=== PATIENT | female | born 1950 | race Caucasian/White ===

== ENCOUNTER 2021-02-27 19:58 | Inpatient (IN) ==
[2021-02-27] MEDS ORDERED: 0.9 % Sodium Chloride 500 ML IVC ONE (22:12)
[2021-02-27] MEDS ORDERED: Ondansetron 4 MG/2 ML VIAL IVP ONE (22:13)
[2021-02-27 22:20] LABS: Bacteria,Urine Few per hpf (None-Few); Bilirubin,Urine Negative (Negative); Blood,Urine Negative (Negative); Budding Yeast,Urine Many per hpf (None Seen); Clarity,Urine Turbid (Clear); Color,Urine Light-Yellow (Yellow); Glucose,Urine (UA) >=1000 mg/dL (Normal); Ketones,Urine 60 mg/dL (Negative); Leukocyte Esterase,Urine Negative (Negative); Mucus,Urine Few per lpf (None-Few); Nitrite,Urine Negative (Negative); PH,Urine 5.5 pH Units (5.0-8.0); Protein,Urine Trace mg/dL (Neg-Trace); RBC,Urine 30-50 per hpf (0-3); Specific Gravity,Urine > 1.030 (1.010-1.025); Squamous Epithelial Cell,Urine Moderate per hpf (None-Few); Urobilinogen,Urine Normal (Normal); WBC,Urine 30-50 per hpf (0-3)
[2021-02-27 22:33] LABS: Influenza A PCR Negative (Negative); Influenza B PCR Negative (Negative); Resp. Syncytial Virus PCR Negative (Negative)
[2021-02-27 22:34] LABS: SARS-CoV-2 by PCR (In House) Negative (Negative)
[2021-02-27 22:35] LABS: Basophils # 0.1 K/mcL (0.0-0.2); Basophils % 0.3 %; Eosinophils % 0.1 %; Hematocrit 42.1 % (35.3-44.9); Hemoglobin 13.1 g/dL (11.5-15.4); Immature Granulocytes % 0.5 % (0-4); Lymphocytes % 4.8 %; Mean Corpuscular HGB Conc 31.1 g/dL (31.6-35.5); Mean Corpuscular Hemoglobin 29.3 pg (28.0-33.3); Mean Corpuscular Volume 94.2 fL (83.0-100.0); Mean Platelet Volume 11.1 fL (9.4-12.4); Monocytes # 1.3 K/mcL (0.0-1.3); Monocytes % 6.8 %; Neutrophils # 17.4 K/mcL (1.6-8.9); Platelet Count 264 K/mcL (140-400); Red Blood Count 4.47 M/mcL (3.82-4.97); Red Cell Distribution Width 12.4 % (11.5-14.5); Segmented Neutrophils % 87.5 %; White Blood Count 19.8 K/mcL (4.3-11.1)
[2021-02-27 22:42] LABS: VBG HCO3 11 mEq/L (21-27); VBG PCO2 30 mmHg (41-51); VBG PH 7.18 pH Units (7.32-7.42); VBG PO2 48 mmHg (25-50)
[2021-02-27] MEDS ORDERED: cefTRIAXone 1,000 MG in Water for inj. (sterile) 10 ML IVP ONE (22:47)
[2021-02-27 23:01] LABS: Albumin/Globulin Ratio 0.8 (1.1-2.2); Bilirubin,Total 0.5 mg/dL (0.3-1.0); Calcium 10.9 mg/dL (8.6-10.3); Globulin 3.8 g/dL (2.4-3.5); Potassium 4.2 mEq/L (3.5-5.1); Total Protein 6.8 g/dL (6.4-8.9); Troponin I 0.04 ng/mL (< 0.04)
[2021-02-27] MEDS ORDERED: 0.9 % Sodium Chloride 1,000 ML IVC ONE (23:04)
[2021-02-27] MEDS ORDERED: Potassium Chloride Elixir 20 MEQ/15 ML UDC PO ONE (23:05)
[2021-02-27 23:12] LABS: Thyroid Stimulating Hormone 3.666 mcIU/mL (0.340-5.600)
[2021-02-27] MEDS ORDERED: Insulin Regular, Human 100 UNIT/ML IV PRN (23:39)
[2021-02-28] MEDS ORDERED: Ondansetron 4 MG/2 ML VIAL IVP PRN (01:39)
[2021-02-28] MEDS ORDERED: Acetaminophen 325 MG TABLET PO PRN (01:39)
[2021-02-28] MEDS ORDERED: Naloxone 0.4 MG/ML INJ IVP PRN (01:39)
[2021-02-28] MEDS ORDERED: Insulin Regular, Human 100 UNIT/ML IV PRN ×2 (01:41)
[2021-02-28] MEDS ORDERED: Insulin Regular, Human 100 UNIT/ML IV ONE (01:41)
[2021-02-28] MEDS ORDERED: *HR* Dextrose 50 % in Water (Syg) 50 ML SYRINGE IVP PRN ×2 (01:41→15:12)
[2021-02-28] MEDS ORDERED: D5% in 0.45% NACL 1,000 ML IVC PRN (01:41)
[2021-02-28] MEDS ORDERED: 0.9 % Sodium Chloride 1,000 ML IVC PRN (01:45)
[2021-02-28] MEDS: 0.45 % Sodium Chloride w/KCl 20 MEQ/1,000 ML MLS IVC SCH ×4 (05:47→16:23)
[2021-02-28] MEDS: *HR* Enoxaparin 40 MG/0.4 ML SYRINGE SQ SCH (06:07)
[2021-02-28 06:09] LABS: Calcium 10.6 mg/dL (8.6-10.3); Potassium 5.2 mEq/L (3.5-5.1)
[2021-02-28 08:40] LABS: VBG HCO3 17 mEq/L (21-27); VBG PCO2 34 mmHg (41-51); VBG PO2 199 mmHg (25-50)
[2021-02-28 08:58] LABS: Calcium 10.7 mg/dL (8.6-10.3); Potassium 4.6 mEq/L (3.5-5.1)
[2021-02-28] MEDS: D5% in 0.45% NACL w KCl 20 MEQ/1,000 ML MLS IVC PRN ×3 (09:02→17:19)
[2021-02-28 14:40] LABS: VBG HCO3 18 mEq/L (21-27); VBG PCO2 31 mmHg (41-51); VBG PH 7.38 pH Units (7.32-7.42); VBG PO2 145 mmHg (25-50)
[2021-02-28 15:03] LABS: Calcium 10.4 mg/dL (8.6-10.3); Potassium 4.4 mEq/L (3.5-5.1)
[2021-02-28] MEDS ORDERED: Dextrose Gel 15 GM/37.5 ML TUBE PO PRN ×2 (15:12)
[2021-02-28] MEDS ORDERED: D5% in Water 1,000 ML IVC PRN (15:12)
[2021-02-28] MEDS ORDERED: Insulin DETEMIR 100 UNIT/ML X5UNITS SUBQ SCH (15:12)
[2021-02-28 17:09] LABS: Calcium 10.3 mg/dL (8.6-10.3); Potassium 4.6 mEq/L (3.5-5.1)
[2021-02-28] MEDS: Insulin LISPRO 300 UNITS/3 ML VIAL SUBQ SCH ×2 (17:20→19:57)
[2021-03-01 02:26] LABS: Basophils % 0.2 %; Eosinophils % 0.3 %; Hematocrit 33.3 % (35.3-44.9); Hemoglobin 10.8 g/dL (11.5-15.4); Immature Granulocytes % 0.4 % (0-4); Lymphocytes # 1.4 K/mcL (0.6-4.6); Lymphocytes % 11.2 %; Mean Corpuscular HGB Conc 32.4 g/dL (31.6-35.5); Mean Corpuscular Hemoglobin 29.1 pg (28.0-33.3); Mean Corpuscular Volume 89.8 fL (83.0-100.0); Mean Platelet Volume 10.9 fL (9.4-12.4); Monocytes # 1.1 K/mcL (0.0-1.3); Neutrophils # 9.5 K/mcL (1.6-8.9); Platelet Count 180 K/mcL (140-400); Red Blood Count 3.71 M/mcL (3.82-4.97); Red Cell Distribution Width 12.1 % (11.5-14.5); Segmented Neutrophils % 78.9 %; White Blood Count 12.1 K/mcL (4.3-11.1)
[2021-03-01 02:44] LABS: Calcium 10.1 mg/dL (8.6-10.3); Potassium 4.9 mEq/L (3.5-5.1)
[2021-03-01] MEDS: *HR* Enoxaparin 40 MG/0.4 ML SYRINGE SQ SCH (06:11)
[2021-03-01] MEDS: Insulin LISPRO 300 UNITS/3 ML VIAL SUBQ SCH ×4 (07:41→20:43)
[2021-03-01] MEDS: 0.45 % Sodium Chloride w/KCl 20 MEQ/1,000 ML MLS IVC SCH (12:15)
[2021-03-01] MEDS: 0.9 % Sodium Chloride w KCl 20 MEQ/1,000 ML MLS IVC SCH (13:52)
[2021-03-01] MEDS ORDERED: Insulin DETEMIR 100 UNIT/ML X5UNITS SUBQ SCH (21:00)
[2021-03-02 06:18] LABS: Basophils % 0.2 %; Eosinophils # 0.1 K/mcL (0.0-0.6); Eosinophils % 0.9 %; Hematocrit 33.3 % (35.3-44.9); Hemoglobin 10.9 g/dL (11.5-15.4); Immature Granulocytes % 0.5 % (0-4); Lymphocytes # 1.4 K/mcL (0.6-4.6); Lymphocytes % 12.9 %; Mean Corpuscular HGB Conc 32.7 g/dL (31.6-35.5); Mean Corpuscular Hemoglobin 29.5 pg (28.0-33.3); Mean Platelet Volume 11.4 fL (9.4-12.4); Monocytes # 0.9 K/mcL (0.0-1.3); Monocytes % 8.7 %; Neutrophils # 8.1 K/mcL (1.6-8.9); Platelet Count 174 K/mcL (140-400); Red Cell Distribution Width 12.3 % (11.5-14.5); Segmented Neutrophils % 76.8 %; White Blood Count 10.5 K/mcL (4.3-11.1)
[2021-03-02 06:43] LABS: BUN/Creatinine Ratio 16 (6-26); Blood Urea Nitrogen 17 mg/dL (8-23); Calcium 10.9 mg/dL (8.6-10.3); Carbon Dioxide 20 mEq/L (23-29); Chloride 102 mEq/L (98-107); Glucose 276 mg/dL (70-105); Osmolality,Calculated 283 (280-300); Potassium 4.6 mEq/L (3.5-5.1); Sodium 131 mEq/L (136-145); eGFR For African Americans > 60 (> 60); eGFR For Non-African Americans 50 (> 60)
[2021-03-02] MEDS: Insulin LISPRO 300 UNITS/3 ML VIAL SUBQ SCH ×3 (07:36→17:08)
[2021-03-02] MEDS: *HR* Enoxaparin 40 MG/0.4 ML SYRINGE SQ SCH (07:36)
[2021-03-02 15:05] VITALS: BP 105/69; PULSE 95; TEMP 97.4; O2SAT 91
[2021-03-02 16:09] LABS: Influenza A PCR Negative (Negative); Influenza B PCR Negative (Negative); Resp. Syncytial Virus PCR Negative (Negative)
[2021-03-02 16:31] LABS: SARS-CoV-2 by PCR (In House) Negative (Negative)
== END 2021-03-02 20:30 | DRG 638 ==
LOC: EMEROOARM 19:58 → 2NENU 19:58 → SUATTDRO 02-28 01:10 → 3NENU 02-28 02:19 → 2NNU 02-28 02:28 → 3BNU 03-01 11:48
PROVIDERS: ADMIT Internal Medicine; ATTEND Internal Medicine

== ENCOUNTER 2021-03-09 14:43 | Inpatient (IN) ==
[2021-03-09] MEDS ORDERED: *HR* Heparin 5,000 UNIT/ML VIAL IVP PRN ×2 (19:50)
[2021-03-09] MEDS ORDERED: Melatonin 3 MG TABLET PO PRN (19:50)
[2021-03-09] MEDS ORDERED: *HR* HYDROcodone/Acet 5/325 mg TABLET PO PRN (19:50)
[2021-03-09] MEDS ORDERED: Ondansetron 4 MG/2 ML VIAL IVP PRN (19:50)
[2021-03-09] MEDS ORDERED: Naloxone 0.4 MG/ML INJ IVP PRN (19:50)
[2021-03-09] MEDS ORDERED: Acetaminophen 325 MG TABLET PO PRN (19:50)
[2021-03-09] MEDS ORDERED: Dextrose Gel 15 GM/37.5 ML TUBE PO PRN ×2 (19:58)
[2021-03-09] MEDS ORDERED: *HR* Dextrose 50 % in Water (Syg) 50 ML SYRINGE IVP PRN (19:58)
[2021-03-09] MEDS ORDERED: D5% in Water 1,000 ML IVC PRN (19:58)
[2021-03-09] MEDS: 0.9 % Sodium Chloride 1,000 ML IVC SCH (20:47)
[2021-03-09] MEDS: Heparin 25,000UNIT/250ML 1/2NS 25,000 UNIT/250 ML IV.SOLN IVC SCH (20:48)
[2021-03-10] MEDS: Insulin LISPRO 300 UNITS/3 ML VIAL SUBQ SCH ×4 (00:13→22:42)
[2021-03-10 01:26] LABS: Basophils % 0.2 %; Eosinophils # 0.1 K/mcL (0.0-0.6); Hematocrit 35.2 % (35.3-44.9); Hemoglobin 11.1 g/dL (11.5-15.4); Immature Granulocytes % 0.3 % (0-4); Lymphocytes # 1.6 K/mcL (0.6-4.6); Lymphocytes % 13.2 %; Mean Corpuscular HGB Conc 31.5 g/dL (31.6-35.5); Mean Corpuscular Hemoglobin 29.5 pg (28.0-33.3); Mean Corpuscular Volume 93.6 fL (83.0-100.0); Mean Platelet Volume 10.9 fL (9.4-12.4); Monocytes # 0.7 K/mcL (0.0-1.3); Monocytes % 5.3 %; Neutrophils # 9.9 K/mcL (1.6-8.9); Platelet Count 165 K/mcL (140-400); Red Blood Count 3.76 M/mcL (3.82-4.97); Red Cell Distribution Width 13.9 % (11.5-14.5); White Blood Count 12.4 K/mcL (4.3-11.1)
[2021-03-10 01:43] LABS: Albumin 2.6 g/dL (3.5-5.7); Albumin/Globulin Ratio 0.8 (1.1-2.2); Bilirubin,Total 0.4 mg/dL (0.3-1.0); Calcium 9.1 mg/dL (8.6-10.3); Globulin 3.3 g/dL (2.4-3.5); Potassium 4.5 mEq/L (3.5-5.1); Total Protein 5.9 g/dL (6.4-8.9)
[2021-03-10] MEDS: 0.9 % Sodium Chloride 1,000 ML IVC SCH (04:34)
[2021-03-10] MEDS: Heparin 25,000UNIT/250ML 1/2NS 25,000 UNIT/250 ML IV.SOLN IVC SCH ×2 (12:11→16:50)
[2021-03-10 14:51] LABS: INR 1.1; Prothrombin Time 11.9 Seconds (9.4-12.1)
[2021-03-10 15:09] LABS: Uric Acid 7.7 mg/dL (2.3-7.6)
[2021-03-10] MEDS ORDERED: Warfarin perPT PO PRN (18:00)
[2021-03-10] MEDS ORDERED: *HR* Warfarin 5 MG TABLET PO ONE (18:00)
[2021-03-10] MEDS: Insulin DETEMIR 100 UNIT/ML X5UNITS SUBQ SCH (22:43)
[2021-03-11 05:35] LABS: Hematocrit 32.4 % (35.3-44.9); Hemoglobin 10.5 g/dL (11.5-15.4); Mean Corpuscular HGB Conc 32.4 g/dL (31.6-35.5); Mean Corpuscular Hemoglobin 29.7 pg (28.0-33.3); Mean Corpuscular Volume 91.8 fL (83.0-100.0); Mean Platelet Volume 10.9 fL (9.4-12.4); Platelet Count 172 K/mcL (140-400); Red Blood Count 3.53 M/mcL (3.82-4.97); Red Cell Distribution Width 13.6 % (11.5-14.5); White Blood Count 10.1 K/mcL (4.3-11.1)
[2021-03-11 05:45] LABS: Heparin anti-factor XA UFH 0.65 IU/mL (0.30-0.70)
[2021-03-11 05:46] LABS: INR 1.1
[2021-03-11 06:00] LABS: Calcium 9.1 mg/dL (8.6-10.3); Magnesium 1.4 mg/dL (1.6-2.6); Phosphorous 3.5 mg/dL (2.7-4.5); Potassium 4.2 mEq/L (3.5-5.1)
[2021-03-11] MEDS: Heparin 25,000UNIT/250ML 1/2NS 25,000 UNIT/250 ML IV.SOLN IVC SCH ×2 (07:48→23:31)
[2021-03-11] MEDS: Insulin LISPRO 300 UNITS/3 ML VIAL SUBQ SCH ×4 (09:00→21:10)
[2021-03-11 11:34] LABS: Estimated Average Glucose 263 mg/dl; Hemoglobin A1C 10.8 %
[2021-03-11] MEDS: 0.9 % Sodium Chloride 1,000 ML IVC SCH ×2 (11:44→20:08)
[2021-03-11 14:30] LABS: Bilirubin,Urine Negative (Negative); Blood,Urine Small (Negative); Budding Yeast,Urine Many per hpf (None Seen); Clarity,Urine Ex.Turbid (Clear); Color,Urine Yellow (Yellow); Glucose,Urine (UA) Normal (Normal); Granular Casts,Urine Many per lpf (None Seen); Hyaline Casts,Urine Few per lpf (None Seen); Ketones,Urine Negative (Negative); Leukocyte Esterase,Urine Large (Negative); Mucus,Urine Few per lpf (None-Few); Nitrite,Urine Positive (Negative); PH,Urine 5.5 pH Units (5.0-8.0); Protein,Urine 50 mg/dL (Neg-Trace); Specific Gravity,Urine 1.016 (1.010-1.025); Squamous Epithelial Cell,Urine Moderate per hpf (None-Few); Urobilinogen,Urine Normal (Normal); WBC,Urine 50-100 per hpf (0-3)
[2021-03-11 14:56] LABS: Protein/Creatinine Ratio,Urine 0.76 mg/mg (0.00-0.20); Sodium, Urine 52.2 mEq/L
[2021-03-11] MEDS ORDERED: *HR* Warfarin 5 MG TABLET PO ONE (18:00)
[2021-03-11] MEDS ORDERED: *HR* LORazepam 2 MG/ML VIAL IVP ONE (21:03)
[2021-03-11] MEDS ORDERED: *HR* LORazepam 2 MG/ML VIAL ONE (21:06)
[2021-03-11] MEDS: Insulin DETEMIR 100 UNIT/ML X5UNITS SUBQ SCH (21:07)
[2021-03-12 07:22] LABS: INR 1.4; Prothrombin Time 15.5 Seconds (9.4-12.1)
[2021-03-12 07:27] LABS: Hematocrit 30.1 % (35.3-44.9); Hemoglobin 9.8 g/dL (11.5-15.4); Mean Corpuscular HGB Conc 32.6 g/dL (31.6-35.5); Mean Corpuscular Hemoglobin 29.8 pg (28.0-33.3); Mean Corpuscular Volume 91.5 fL (83.0-100.0); Mean Platelet Volume 10.6 fL (9.4-12.4); Platelet Count 161 K/mcL (140-400); Red Blood Count 3.29 M/mcL (3.82-4.97); Red Cell Distribution Width 13.5 % (11.5-14.5); White Blood Count 7.3 K/mcL (4.3-11.1)
[2021-03-12 07:36] LABS: Calcium 8.8 mg/dL (8.6-10.3); Magnesium 1.4 mg/dL (1.6-2.6); Phosphorous 2.7 mg/dL (2.7-4.5); Potassium 3.9 mEq/L (3.5-5.1)
[2021-03-12 07:40] LABS: % Iron Saturation 5 % (15-50); Iron 13 mcg/dL (50-170); Transferrin 176 mg/dL (203-362)
[2021-03-12 07:53] LABS: Ferritin 274 ng/mL (10-120)
[2021-03-12] MEDS ORDERED: Iron Sucrose Complex 400 MG in 0.9 % Sodium Chloride 250 ML IVPB ONE (07:55)
[2021-03-12 07:58] LABS: Folate 5.4 ng/mL (3.0-16.0)
[2021-03-12] MEDS: Insulin LISPRO 300 UNITS/3 ML VIAL SUBQ SCH ×4 (09:13→19:57)
[2021-03-12] MEDS: 0.9 % Sodium Chloride 1,000 ML IVC SCH (12:41)
[2021-03-12] MEDS: Heparin 25,000UNIT/250ML 1/2NS 25,000 UNIT/250 ML IV.SOLN IVC SCH (12:43)
[2021-03-12] MEDS ORDERED: hydrOXYzine pamoate 25 MG CAPSULE PO PRN (12:48)
[2021-03-12] MEDS ORDERED: *HR* Warfarin 5 MG TABLET PO ONE (18:00)
[2021-03-12] MEDS: Insulin DETEMIR 100 UNIT/ML X5UNITS SUBQ SCH (20:15)
[2021-03-13] MEDS: 0.9 % Sodium Chloride 1,000 ML IVC SCH (01:04)
[2021-03-13 05:35] LABS: Hematocrit 28.3 % (35.3-44.9); Hemoglobin 9.3 g/dL (11.5-15.4); Mean Corpuscular HGB Conc 32.9 g/dL (31.6-35.5); Mean Corpuscular Hemoglobin 29.8 pg (28.0-33.3); Mean Corpuscular Volume 90.7 fL (83.0-100.0); Mean Platelet Volume 10.5 fL (9.4-12.4); Platelet Count 186 K/mcL (140-400); Red Blood Count 3.12 M/mcL (3.82-4.97); Red Cell Distribution Width 13.8 % (11.5-14.5); White Blood Count 6.9 K/mcL (4.3-11.1)
[2021-03-13 05:42] LABS: INR 1.8; Prothrombin Time 19.8 Seconds (9.4-12.1)
[2021-03-13 05:56] LABS: Calcium 8.7 mg/dL (8.6-10.3); Magnesium 1.6 mg/dL (1.6-2.6); Phosphorous 2.2 mg/dL (2.7-4.5); Potassium 3.8 mEq/L (3.5-5.1)
[2021-03-13] MEDS: Renal Vitamin 1 CAP CAPSULE PO SCH (09:30)
[2021-03-13] MEDS: Heparin 25,000UNIT/250ML 1/2NS 25,000 UNIT/250 ML IV.SOLN IVC SCH ×2 (09:32→21:11)
[2021-03-13] MEDS: Insulin LISPRO 300 UNITS/3 ML VIAL SUBQ SCH ×5 (10:49→21:07)
[2021-03-13] MEDS ORDERED: cefTRIAXone 1,000 MG in 0.9 % Sodium Chloride Mini Bag 100 ML IVPB ONE (14:34)
[2021-03-13] MEDS ORDERED: *HR* Warfarin 3 MG TABLET PO ONE (18:00)
[2021-03-13] MEDS: Lactobacillus 1 EACH CAP.SPRINK PO SCH (21:10)
[2021-03-13] MEDS: Insulin DETEMIR 100 UNIT/ML X5UNITS SUBQ SCH (21:12)
[2021-03-14] MEDS: Heparin 25,000UNIT/250ML 1/2NS 25,000 UNIT/250 ML IV.SOLN IVC SCH ×2 (02:47→21:39)
[2021-03-14 06:09] LABS: Hematocrit 27.5 % (35.3-44.9); Hemoglobin 8.8 g/dL (11.5-15.4); Mean Corpuscular Hemoglobin 29.4 pg (28.0-33.3); Mean Platelet Volume 10.5 fL (9.4-12.4); Platelet Count 164 K/mcL (140-400); Red Blood Count 2.99 M/mcL (3.82-4.97); Red Cell Distribution Width 14.1 % (11.5-14.5); White Blood Count 6.1 K/mcL (4.3-11.1)
[2021-03-14 06:16] LABS: INR 2.5; Prothrombin Time 28.2 Seconds (9.4-12.1)
[2021-03-14 06:29] LABS: Calcium 8.7 mg/dL (8.6-10.3); Magnesium 1.4 mg/dL (1.6-2.6); Phosphorous 2.2 mg/dL (2.7-4.5); Potassium 4.1 mEq/L (3.5-5.1)
[2021-03-14] MEDS: Insulin LISPRO 300 UNITS/3 ML VIAL SUBQ SCH ×7 (08:58→22:48)
[2021-03-14] MEDS: Lactobacillus 1 EACH CAP.SPRINK PO SCH ×2 (08:59→19:24)
[2021-03-14] MEDS: Renal Vitamin 1 CAP CAPSULE PO SCH (08:59)
[2021-03-14] MEDS ORDERED: Multivit/Ca/Min/Fe/FA 1 TAB TABLET PO SCH (09:00)
[2021-03-14 10:18] LABS: Hematocrit 28.6 % (35.3-44.9); Hemoglobin 9.2 g/dL (11.5-15.4)
[2021-03-14] MEDS ORDERED: Warfarin 0.5 MG, Warfarin 1 MG PO ONE (18:00)
[2021-03-14] MEDS: Sennosides/Docusate Sodium TABLET PO SCH (19:24)
[2021-03-14] MEDS: Insulin DETEMIR 100 UNIT/ML X5UNITS SUBQ SCH (19:24)
[2021-03-15 01:10] LABS: Hematocrit 27.2 % (35.3-44.9); Hemoglobin 8.8 g/dL (11.5-15.4); Mean Corpuscular HGB Conc 32.4 g/dL (31.6-35.5); Mean Corpuscular Hemoglobin 29.9 pg (28.0-33.3); Mean Corpuscular Volume 92.5 fL (83.0-100.0); Platelet Count 171 K/mcL (140-400); Red Blood Count 2.94 M/mcL (3.82-4.97); Red Cell Distribution Width 14.2 % (11.5-14.5); White Blood Count 6.3 K/mcL (4.3-11.1)
[2021-03-15 01:15] LABS: INR 2.7; Prothrombin Time 30.4 Seconds (9.4-12.1)
[2021-03-15 01:27] LABS: BUN/Creatinine Ratio 16 (6-26); Blood Urea Nitrogen 16 mg/dL (8-23); Calcium 8.6 mg/dL (8.6-10.3); Carbon Dioxide 21 mEq/L (23-29); Chloride 106 mEq/L (98-107); Glucose 146 mg/dL (70-105); Magnesium 1.5 mg/dL (1.6-2.6); Osmolality,Calculated 282 (280-300); Phosphorous 2.3 mg/dL (2.7-4.5); Potassium 3.9 mEq/L (3.5-5.1); Sodium 134 mEq/L (136-145); eGFR For African Americans > 60 (> 60); eGFR For Non-African Americans 54 (> 60)
[2021-03-15] MEDS: Sennosides/Docusate Sodium TABLET PO SCH (07:30)
[2021-03-15] MEDS: Renal Vitamin 1 CAP CAPSULE PO SCH (07:31)
[2021-03-15] MEDS: Insulin LISPRO 300 UNITS/3 ML VIAL SUBQ SCH ×6 (07:31→16:36)
[2021-03-15] MEDS: Lactobacillus 1 EACH CAP.SPRINK PO SCH (07:31)
[2021-03-15] MEDS ORDERED: polyethylene glycoL 3350 17 GM POWD.PACK PO SCH (09:00)
[2021-03-15 11:40] VITALS: O2SAT 94
[2021-03-15 15:34] VITALS: BP 111/70; PULSE 94; TEMP 98.2
[2021-03-15 16:49] LABS: Influenza A PCR Negative (Negative); Influenza B PCR Negative (Negative); Resp. Syncytial Virus PCR Negative (Negative); SARS-CoV-2 by PCR (In House) Negative (Negative)
[2021-03-15] MEDS ORDERED: *HR* Warfarin 2 MG TABLET PO ONE (18:00)
== END 2021-03-15 17:49 | disposition other institution (70) | DRG 299 ==
LOC: 2ANU → SUATTDRO 18:46
PROVIDERS: ADMIT Family Medicine; ATTEND Internal Medicine

== ENCOUNTER 2021-03-25 20:21 | Inpatient (IN) ==
[2021-03-26] MEDS ORDERED: *HR* Promethazine 25 MG/ML VIAL IM PRN (00:58)
[2021-03-26] MEDS ORDERED: Naloxone 0.4 MG/ML INJ IVP PRN (00:58)
[2021-03-26] MEDS ORDERED: D5% in Water 1,000 ML IVC PRN (01:06)
[2021-03-26] MEDS ORDERED: *HR* Dextrose 50 % in Water (Syg) 50 ML SYRINGE IVP PRN (01:06)
[2021-03-26] MEDS ORDERED: Dextrose Gel 15 GM/37.5 ML TUBE PO PRN ×2 (01:06)
[2021-03-26] MEDS ORDERED: Saliva Stimulant 44.3ml BOTTLE PO PRN (01:07)
[2021-03-26] MEDS ORDERED: *HR* Heparin 5,000 UNIT/ML VIAL IVP PRN ×2 (01:24)
[2021-03-26] MEDS: 0.9 % Sodium Chloride 1,000 ML IVC SCH ×2 (01:32→11:51)
[2021-03-26] MEDS ORDERED: *HR* LORazepam 2 MG/ML VIAL IVP PRN (01:36)
[2021-03-26] MEDS: Heparin 25,000UNIT/250ML 1/2NS 25,000 UNIT/250 ML IV.SOLN IVC SCH ×2 (01:48→19:51)
[2021-03-26 01:56] LABS: Basophils % 0.3 %; Eosinophils # 0.1 K/mcL (0.0-0.6); Eosinophils % 0.5 %; Hematocrit 28.5 % (35.3-44.9); Hemoglobin 9.1 g/dL (11.5-15.4); Immature Granulocytes % 0.3 % (0-4); Lymphocytes # 1.2 K/mcL (0.6-4.6); Lymphocytes % 10.5 %; Mean Corpuscular HGB Conc 31.9 g/dL (31.6-35.5); Mean Corpuscular Hemoglobin 29.2 pg (28.0-33.3); Mean Corpuscular Volume 91.3 fL (83.0-100.0); Monocytes # 0.6 K/mcL (0.0-1.3); Monocytes % 5.3 %; Neutrophils # 9.7 K/mcL (1.6-8.9); Platelet Count 427 K/mcL (140-400); Red Blood Count 3.12 M/mcL (3.82-4.97); Red Cell Distribution Width 15.5 % (11.5-14.5); Segmented Neutrophils % 83.1 %; White Blood Count 11.7 K/mcL (4.3-11.1)
[2021-03-26 02:02] LABS: Bilirubin,Direct 0.1 mg/dL (0.0-0.2); Bilirubin,Indirect 0.4 mg/dL (0.0-1.0); Bilirubin,Total 0.5 mg/dL (0.3-1.0)
[2021-03-26 02:05] LABS: Albumin 2.2 g/dL (3.5-5.7); Albumin/Globulin Ratio 0.7 (1.1-2.2); Bilirubin,Total 0.4 mg/dL (0.3-1.0); Calcium 7.7 mg/dL (8.6-10.3); Globulin 3.1 g/dL (2.4-3.5); Potassium 4.2 mEq/L (3.5-5.1); Total Protein 5.3 g/dL (6.4-8.9)
[2021-03-26 02:10] LABS: Heparin anti-factor XA UFH < 0.04 IU/mL (0.30-0.70); INR 2.6; Prothrombin Time 28.4 Seconds (9.4-12.1)
[2021-03-26 02:12] LABS: Activated Partial Thrombo Time 36.8 Seconds (26.0-36.0); Carcinoembryonic Antigen 2.5 ng/mL (Less than 5.0)
[2021-03-26] MEDS: Levothyroxine 25 MCG TABLET PO SCH (04:53)
[2021-03-26] MEDS: Lactobacillus 1 EACH CAP.SPRINK PO SCH ×2 (08:26→19:44)
[2021-03-26] MEDS: Piperacillin/Tazobactam 3.375 GM in 0.9 % Sodium Chloride Mini Bag 100 ML IVPB SCH ×2 (08:27→15:48)
[2021-03-26] MEDS: Chlorhexidine Rinse 15 ML MOUTHWASH MM SCH ×2 (08:28→19:44)
[2021-03-26] MEDS: Pantoprazole 40 MG VIAL IVP SCH (08:28)
[2021-03-26] MEDS ORDERED: GADOBUTROL 30 MMOL/30 ML VIAL IVP ONE (18:07)
[2021-03-27] MEDS: Piperacillin/Tazobactam 3.375 GM in 0.9 % Sodium Chloride Mini Bag 100 ML IVPB SCH ×4 (00:06→22:58)
[2021-03-27 00:47] LABS: Heparin anti-factor XA UFH 0.39 IU/mL (0.30-0.70); INR 3.5
[2021-03-27] MEDS: Levothyroxine 25 MCG TABLET PO SCH (07:05)
[2021-03-27] MEDS ORDERED: hydrOXYzine pamoate 25 MG CAPSULE PO PRN (07:52)
[2021-03-27] MEDS: Pantoprazole 40 MG VIAL IVP SCH (09:00)
[2021-03-27] MEDS: Sennosides/Docusate Sodium TABLET PO SCH ×2 (09:00→19:58)
[2021-03-27] MEDS: Lactobacillus 1 EACH CAP.SPRINK PO SCH ×2 (09:00→19:58)
[2021-03-27] MEDS ORDERED: LANSOPRAZOLE 15 MG PO SCH (09:00)
[2021-03-27] MEDS: Chlorhexidine Rinse 15 ML MOUTHWASH MM SCH ×2 (09:00→19:59)
[2021-03-27] MEDS: Insulin DETEMIR 100 UNIT/ML X5UNITS SUBQ SCH (09:02)
[2021-03-27] MEDS: Heparin 25,000UNIT/250ML 1/2NS 25,000 UNIT/250 ML IV.SOLN IVC SCH ×2 (09:03→13:22)
[2021-03-27 09:06] LABS: Basophils % 0.2 %; Eosinophils # 0.1 K/mcL (0.0-0.6); Eosinophils % 1.1 %; Hemoglobin 8.7 g/dL (11.5-15.4); Immature Granulocytes % 0.6 % (0-4); Lymphocytes # 1.7 K/mcL (0.6-4.6); Lymphocytes % 17.1 %; Mean Corpuscular HGB Conc 32.2 g/dL (31.6-35.5); Mean Corpuscular Hemoglobin 29.7 pg (28.0-33.3); Mean Corpuscular Volume 92.2 fL (83.0-100.0); Monocytes # 0.8 K/mcL (0.0-1.3); Monocytes % 7.9 %; Neutrophils # 7.3 K/mcL (1.6-8.9); Platelet Count 453 K/mcL (140-400); Red Blood Count 2.93 M/mcL (3.82-4.97); Red Cell Distribution Width 15.8 % (11.5-14.5); Segmented Neutrophils % 73.1 %
[2021-03-27 09:27] LABS: Calcium 7.7 mg/dL (8.6-10.3); Potassium 3.9 mEq/L (3.5-5.1)
[2021-03-27] MEDS: Insulin LISPRO 300 UNITS/3 ML VIAL SUBQ SCH ×2 (11:52→17:33)
[2021-03-28] MEDS: Levothyroxine 25 MCG TABLET PO SCH (05:24)
[2021-03-28 06:37] LABS: Basophils % 0.3 %; Eosinophils # 0.1 K/mcL (0.0-0.6); Hematocrit 26.4 % (35.3-44.9); Hemoglobin 8.5 g/dL (11.5-15.4); Immature Granulocytes % 0.6 % (0-4); Lymphocytes # 1.5 K/mcL (0.6-4.6); Lymphocytes % 13.9 %; Mean Corpuscular HGB Conc 32.2 g/dL (31.6-35.5); Mean Corpuscular Hemoglobin 29.8 pg (28.0-33.3); Mean Corpuscular Volume 92.6 fL (83.0-100.0); Mean Platelet Volume 9.6 fL (9.4-12.4); Monocytes # 0.8 K/mcL (0.0-1.3); Monocytes % 7.3 %; Neutrophils # 8.4 K/mcL (1.6-8.9); Platelet Count 427 K/mcL (140-400); Red Blood Count 2.85 M/mcL (3.82-4.97); Segmented Neutrophils % 76.9 %; White Blood Count 10.9 K/mcL (4.3-11.1)
[2021-03-28 06:50] LABS: Calcium 7.7 mg/dL (8.6-10.3); Potassium 3.8 mEq/L (3.5-5.1)
[2021-03-28] MEDS: Heparin 25,000UNIT/250ML 1/2NS 25,000 UNIT/250 ML IV.SOLN IVC SCH (06:52)
[2021-03-28] MEDS: Chlorhexidine Rinse 15 ML MOUTHWASH MM SCH ×2 (07:49→21:50)
[2021-03-28] MEDS: Piperacillin/Tazobactam 3.375 GM in 0.9 % Sodium Chloride Mini Bag 100 ML IVPB SCH ×2 (07:49→15:33)
[2021-03-28] MEDS: Sennosides/Docusate Sodium TABLET PO SCH ×2 (07:50→21:50)
[2021-03-28] MEDS: Pantoprazole 40 MG VIAL IVP SCH (07:51)
[2021-03-28] MEDS: Lactobacillus 1 EACH CAP.SPRINK PO SCH ×2 (07:51→21:50)
[2021-03-28] MEDS: Insulin DETEMIR 100 UNIT/ML X5UNITS SUBQ SCH (08:00)
[2021-03-28] MEDS: Insulin LISPRO 300 UNITS/3 ML VIAL SUBQ SCH ×3 (08:01→16:56)
[2021-03-28] MEDS ORDERED: 0.9 % Sodium Chloride 1,000 ML IVC SCH (08:15)
[2021-03-28] MEDS ORDERED: *HR* Phytonadione 5 MG TABLET PO ONE (17:34)
[2021-03-29] MEDS: Piperacillin/Tazobactam 3.375 GM in 0.9 % Sodium Chloride Mini Bag 100 ML IVPB SCH ×3 (00:10→17:47)
[2021-03-29] MEDS: Heparin 25,000UNIT/250ML 1/2NS 25,000 UNIT/250 ML IV.SOLN IVC SCH ×3 (01:07→18:24)
[2021-03-29] MEDS: Levothyroxine 25 MCG TABLET PO SCH (05:01)
[2021-03-29 06:59] LABS: Basophils % 0.3 %; Eosinophils # 0.2 K/mcL (0.0-0.6); Eosinophils % 1.4 %; Hematocrit 28.4 % (35.3-44.9); Hemoglobin 8.7 g/dL (11.5-15.4); Immature Granulocytes % 0.8 % (0-4); Lymphocytes # 1.6 K/mcL (0.6-4.6); Lymphocytes % 12.7 %; Mean Corpuscular HGB Conc 30.6 g/dL (31.6-35.5); Mean Corpuscular Hemoglobin 28.8 pg (28.0-33.3); Mean Platelet Volume 9.5 fL (9.4-12.4); Monocytes # 0.9 K/mcL (0.0-1.3); Monocytes % 6.8 %; Neutrophils # 9.8 K/mcL (1.6-8.9); Platelet Count 417 K/mcL (140-400); Red Blood Count 3.02 M/mcL (3.82-4.97); White Blood Count 12.6 K/mcL (4.3-11.1)
[2021-03-29 07:07] LABS: INR 1.4; Prothrombin Time 15.8 Seconds (9.4-12.1)
[2021-03-29 07:18] LABS: Calcium 7.9 mg/dL (8.6-10.3); Potassium 3.7 mEq/L (3.5-5.1)
[2021-03-29 07:27] LABS: AFP Tumor Marker Non-Pregnant 2 ng/mL (0-9)
[2021-03-29 07:35] LABS: Cancer Antigen-GI (CA 19-9) 65 U/mL (0-37)
[2021-03-29] MEDS: Insulin LISPRO 300 UNITS/3 ML VIAL SUBQ SCH ×3 (09:35→17:46)
[2021-03-29] MEDS: Chlorhexidine Rinse 15 ML MOUTHWASH MM SCH ×2 (09:46→20:25)
[2021-03-29] MEDS: Sennosides/Docusate Sodium TABLET PO SCH ×2 (09:46→20:25)
[2021-03-29] MEDS: Lactobacillus 1 EACH CAP.SPRINK PO SCH ×2 (09:46→20:26)
[2021-03-29] MEDS: Pantoprazole 40 MG VIAL IVP SCH (09:47)
[2021-03-29] MEDS: Insulin DETEMIR 100 UNIT/ML X5UNITS SUBQ SCH (09:49)
[2021-03-29] MEDS: Melatonin 3 MG TABLET PO PRN (20:26)
[2021-03-30] MEDS: Piperacillin/Tazobactam 3.375 GM in 0.9 % Sodium Chloride Mini Bag 100 ML IVPB SCH ×4 (01:14→23:29)
[2021-03-30] MEDS: Levothyroxine 25 MCG TABLET PO SCH (04:55)
[2021-03-30 07:23] LABS: INR 1.2; Prothrombin Time 13.8 Seconds (9.4-12.1)
[2021-03-30 07:50] LABS: Basophils % 0.4 %; Eosinophils # 0.2 K/mcL (0.0-0.6); Eosinophils % 2.4 %; Hematocrit 26.7 % (35.3-44.9); Hemoglobin 8.3 g/dL (11.5-15.4); Immature Granulocytes % 1.6 % (0-4); Lymphocytes # 1.6 K/mcL (0.6-4.6); Lymphocytes % 19.4 %; Mean Corpuscular HGB Conc 31.1 g/dL (31.6-35.5); Mean Corpuscular Hemoglobin 29.1 pg (28.0-33.3); Mean Corpuscular Volume 93.7 fL (83.0-100.0); Mean Platelet Volume 10.5 fL (9.4-12.4); Monocytes # 0.8 K/mcL (0.0-1.3); Monocytes % 9.4 %; Neutrophils # 5.3 K/mcL (1.6-8.9); Platelet Count 404 K/mcL (140-400); Red Blood Count 2.85 M/mcL (3.82-4.97); Red Cell Distribution Width 15.9 % (11.5-14.5); Segmented Neutrophils % 66.8 %
[2021-03-30 07:57] LABS: Calcium 7.8 mg/dL (8.6-10.3); Potassium 3.7 mEq/L (3.5-5.1)
[2021-03-30] MEDS: Sennosides/Docusate Sodium TABLET PO SCH ×2 (09:20→20:20)
[2021-03-30] MEDS: Pantoprazole 40 MG VIAL IVP SCH (09:21)
[2021-03-30] MEDS: Lactobacillus 1 EACH CAP.SPRINK PO SCH ×2 (09:21→20:21)
[2021-03-30] MEDS: Chlorhexidine Rinse 15 ML MOUTHWASH MM SCH ×2 (09:21→20:20)
[2021-03-30] MEDS: Insulin DETEMIR 100 UNIT/ML X5UNITS SUBQ SCH (09:22)
[2021-03-30] MEDS: Insulin LISPRO 300 UNITS/3 ML VIAL SUBQ SCH ×3 (09:22→18:15)
[2021-03-30] MEDS: Heparin 25,000UNIT/250ML 1/2NS 25,000 UNIT/250 ML IV.SOLN IVC SCH (13:17)
[2021-03-31] MEDS: Acetaminophen 325 MG TABLET PO PRN (03:46)
[2021-03-31] MEDS: Levothyroxine 25 MCG TABLET PO SCH (05:46)
[2021-03-31] MEDS: Heparin 25,000UNIT/250ML 1/2NS 25,000 UNIT/250 ML IV.SOLN IVC SCH (05:46)
[2021-03-31] MEDS: Lactobacillus 1 EACH CAP.SPRINK PO SCH ×2 (08:59→20:01)
[2021-03-31] MEDS: Sennosides/Docusate Sodium TABLET PO SCH ×2 (09:00→20:02)
[2021-03-31] MEDS: Pantoprazole 40 MG VIAL IVP SCH (09:00)
[2021-03-31] MEDS: Piperacillin/Tazobactam 3.375 GM in 0.9 % Sodium Chloride Mini Bag 100 ML IVPB SCH (09:03)
[2021-03-31] MEDS: Chlorhexidine Rinse 15 ML MOUTHWASH MM SCH ×2 (09:03→20:01)
[2021-03-31] MEDS: Insulin DETEMIR 100 UNIT/ML X5UNITS SUBQ SCH (09:03)
[2021-03-31] MEDS: Insulin LISPRO 300 UNITS/3 ML VIAL SUBQ SCH ×3 (09:04→17:37)
[2021-03-31 09:52] LABS: Albumin 2.2 g/dL (3.5-5.7); Albumin/Globulin Ratio 0.7 (1.1-2.2); Bilirubin,Total 0.5 mg/dL (0.3-1.0); Calcium 7.7 mg/dL (8.6-10.3); Globulin 3.2 g/dL (2.4-3.5); Potassium 3.8 mEq/L (3.5-5.1); Total Protein 5.4 g/dL (6.4-8.9)
[2021-03-31 10:26] LABS: Basophils # 0.1 K/mcL (0.0-0.2); Basophils % 0.9 %; Eosinophils # 0.2 K/mcL (0.0-0.6); Eosinophils % 3.1 %; Immature Granulocytes % 4.7 % (0-4); Lymphocytes % 18.3 %; Mean Corpuscular HGB Conc 32.6 g/dL (31.6-35.5); Mean Corpuscular Hemoglobin 29.3 pg (28.0-33.3); Mean Platelet Volume 10.3 fL (9.4-12.4); Monocytes # 0.5 K/mcL (0.0-1.3); Monocytes % 9.6 %; Neutrophils # 3.5 K/mcL (1.6-8.9); Nucleated Red Blood Cells 0.5 /100 WBC (0); Platelet Count 400 K/mcL (140-400); Red Cell Distribution Width 16.4 % (11.5-14.5); Segmented Neutrophils % 63.4 %
[2021-03-31 10:27] LABS: Hemoglobin 8.8 g/dL (11.5-15.4); White Blood Count 5.5 K/mcL (4.3-11.1)
[2021-04-01] MEDS: Piperacillin/Tazobactam 3.375 GM in 0.9 % Sodium Chloride Mini Bag 100 ML IVPB SCH ×4 (00:17→17:34)
[2021-04-01] MEDS: Heparin 25,000UNIT/250ML 1/2NS 25,000 UNIT/250 ML IV.SOLN IVC SCH (05:14)
[2021-04-01] MEDS: Levothyroxine 25 MCG TABLET PO SCH (05:15)
[2021-04-01 06:15] LABS: Hematocrit 26.6 % (35.3-44.9); Hemoglobin 8.4 g/dL (11.5-15.4); Mean Corpuscular HGB Conc 31.6 g/dL (31.6-35.5); Mean Corpuscular Hemoglobin 29.1 pg (28.0-33.3); Mean Platelet Volume 10.1 fL (9.4-12.4); Platelet Count 406 K/mcL (140-400); Red Blood Count 2.89 M/mcL (3.82-4.97); Red Cell Distribution Width 16.7 % (11.5-14.5)
[2021-04-01 06:34] LABS: Calcium 7.6 mg/dL (8.6-10.3); Potassium 3.5 mEq/L (3.5-5.1)
[2021-04-01] MEDS: Insulin LISPRO 300 UNITS/3 ML VIAL SUBQ SCH ×3 (08:14→17:40)
[2021-04-01] MEDS: Pantoprazole 40 MG VIAL IVP SCH (10:05)
[2021-04-01] MEDS: Sennosides/Docusate Sodium TABLET PO SCH ×2 (10:05→20:15)
[2021-04-01] MEDS: Lactobacillus 1 EACH CAP.SPRINK PO SCH ×2 (10:05→20:15)
[2021-04-01] MEDS: Chlorhexidine Rinse 15 ML MOUTHWASH MM SCH ×2 (10:05→20:15)
[2021-04-01] MEDS: Insulin DETEMIR 100 UNIT/ML X5UNITS SUBQ SCH (10:11)
[2021-04-01 12:32] LABS: Heparin anti-factor XA UFH 0.43 IU/mL (0.30-0.70); INR 1.2
[2021-04-01] MEDS: Acetaminophen 325 MG TABLET PO PRN (12:51)
[2021-04-01] MEDS: *HR* Enoxaparin 120 MG/0.8 ML SYRINGE SQ SCH (17:42)
[2021-04-01] MEDS ORDERED: *HR* Warfarin 2 MG TABLET PO ONE (18:00)
[2021-04-01] MEDS ORDERED: Warfarin perPT PO PRN (18:00)
[2021-04-01] MEDS: Melatonin 3 MG TABLET PO PRN (20:29)
[2021-04-02] MEDS: Piperacillin/Tazobactam 3.375 GM in 0.9 % Sodium Chloride Mini Bag 100 ML IVPB SCH ×2 (00:27→07:48)
[2021-04-02 01:53] LABS: Hematocrit 27.2 % (35.3-44.9); Hemoglobin 8.8 g/dL (11.5-15.4); Mean Corpuscular HGB Conc 32.4 g/dL (31.6-35.5); Mean Corpuscular Hemoglobin 29.8 pg (28.0-33.3); Mean Corpuscular Volume 92.2 fL (83.0-100.0); Mean Platelet Volume 10.1 fL (9.4-12.4); Platelet Count 382 K/mcL (140-400); Red Blood Count 2.95 M/mcL (3.82-4.97); Red Cell Distribution Width 17.2 % (11.5-14.5)
[2021-04-02 02:02] LABS: INR 1.2; Prothrombin Time 13.2 Seconds (9.4-12.1)
[2021-04-02 02:13] LABS: Calcium 7.3 mg/dL (8.6-10.3); Potassium 3.2 mEq/L (3.5-5.1)
[2021-04-02] MEDS: *HR* Enoxaparin 120 MG/0.8 ML SYRINGE SQ SCH ×2 (04:21→17:51)
[2021-04-02] MEDS: Levothyroxine 25 MCG TABLET PO SCH (04:23)
[2021-04-02] MEDS: Chlorhexidine Rinse 15 ML MOUTHWASH MM SCH ×2 (07:49→20:25)
[2021-04-02] MEDS: Sennosides/Docusate Sodium TABLET PO SCH ×2 (07:49→20:25)
[2021-04-02] MEDS: Lactobacillus 1 EACH CAP.SPRINK PO SCH ×2 (07:49→20:24)
[2021-04-02] MEDS: Insulin LISPRO 300 UNITS/3 ML VIAL SUBQ SCH ×3 (07:50→17:10)
[2021-04-02] MEDS ORDERED: Insulin DETEMIR 100 UNIT/ML X5UNITS SUBQ SCH (09:00)
[2021-04-02] MEDS: Acetaminophen 325 MG TABLET PO PRN (13:10)
[2021-04-02] MEDS ORDERED: Piperacillin/Tazobactam 3.375 GM in 0.9 % Sodium Chloride Mini Bag 100 ML IVPB SCH (16:00)
[2021-04-02] MEDS ORDERED: *HR* Warfarin 2 MG TABLET PO ONE (18:00)
[2021-04-02] MEDS ORDERED: Cefepime HCl 2,000 MG in 0.9 % Sodium Chloride Mini Bag 100 ML IVPB SCH (18:00)
[2021-04-03 01:29] LABS: Hematocrit 26.1 % (35.3-44.9); Hemoglobin 8.4 g/dL (11.5-15.4); Mean Corpuscular HGB Conc 32.2 g/dL (31.6-35.5); Mean Corpuscular Hemoglobin 29.6 pg (28.0-33.3); Mean Corpuscular Volume 91.9 fL (83.0-100.0); Mean Platelet Volume 9.8 fL (9.4-12.4); Platelet Count 400 K/mcL (140-400); Red Blood Count 2.84 M/mcL (3.82-4.97); Red Cell Distribution Width 17.8 % (11.5-14.5); White Blood Count 6.1 K/mcL (4.3-11.1)
[2021-04-03 01:50] LABS: INR 1.3
[2021-04-03 02:05] LABS: BUN/Creatinine Ratio 11 (6-26); Blood Urea Nitrogen 12 mg/dL (8-23); Calcium 7.3 mg/dL (8.6-10.3); Carbon Dioxide 26 mEq/L (23-29); Chloride 106 mEq/L (98-107); Glucose 80 mg/dL (70-105); Osmolality,Calculated 289 (280-300); Potassium 3.6 mEq/L (3.5-5.1); Sodium 140 mEq/L (136-145); eGFR For African Americans > 60 (> 60); eGFR For Non-African Americans 51 (> 60)
[2021-04-03 06:10] LABS: Bilirubin,Urine Negative (Negative); Blood,Urine Negative (Negative); Budding Yeast,Urine Many per hpf (None Seen); Clarity,Urine Turbid (Clear); Color,Urine Light-Yellow (Yellow); Glucose,Urine (UA) Normal (Normal); Ketones,Urine Negative (Negative); Leukocyte Esterase,Urine Negative (Negative); Mucus,Urine Few per lpf (None-Few); Nitrite,Urine Negative (Negative); PH,Urine 6.5 pH Units (5.0-8.0); Protein,Urine Trace mg/dL (Neg-Trace); Specific Gravity,Urine 1.016 (1.010-1.025); Squamous Epithelial Cell,Urine Moderate per hpf (None-Few); Urobilinogen,Urine Normal (Normal)
[2021-04-03] MEDS: Levothyroxine 25 MCG TABLET PO SCH (06:12)
[2021-04-03] MEDS: *HR* Enoxaparin 120 MG/0.8 ML SYRINGE SQ SCH ×2 (06:16→16:44)
[2021-04-03] MEDS: Insulin LISPRO 300 UNITS/3 ML VIAL SUBQ SCH ×3 (08:55→16:34)
[2021-04-03] MEDS: Lactobacillus 1 EACH CAP.SPRINK PO SCH ×2 (09:01→20:48)
[2021-04-03] MEDS: Chlorhexidine Rinse 15 ML MOUTHWASH MM SCH ×2 (09:02→20:48)
[2021-04-03] MEDS: Insulin DETEMIR 100 UNIT/ML X5UNITS SUBQ SCH (09:02)
[2021-04-03] MEDS: Sennosides/Docusate Sodium TABLET PO SCH ×2 (09:03→20:49)
[2021-04-03] MEDS ORDERED: *HR* Warfarin 4 MG TABLET PO ONE (18:00)
[2021-04-04 01:05] LABS: Hematocrit 28.6 % (35.3-44.9); Mean Corpuscular HGB Conc 31.5 g/dL (31.6-35.5); Mean Corpuscular Hemoglobin 29.3 pg (28.0-33.3); Mean Corpuscular Volume 93.2 fL (83.0-100.0); Platelet Count 379 K/mcL (140-400); Red Blood Count 3.07 M/mcL (3.82-4.97); Red Cell Distribution Width 18.2 % (11.5-14.5); White Blood Count 7.4 K/mcL (4.3-11.1)
[2021-04-04 01:16] LABS: INR 1.4; Prothrombin Time 15.3 Seconds (9.4-12.1)
[2021-04-04 01:24] LABS: BUN/Creatinine Ratio 13 (6-26); Blood Urea Nitrogen 11 mg/dL (8-23); Calcium 7.3 mg/dL (8.6-10.3); Carbon Dioxide 26 mEq/L (23-29); Chloride 105 mEq/L (98-107); Glucose 127 mg/dL (70-105); Osmolality,Calculated 289 (280-300); Potassium 3.4 mEq/L (3.5-5.1); Sodium 139 mEq/L (136-145); eGFR For African Americans > 60 (> 60); eGFR For Non-African Americans > 60 (> 60)
[2021-04-04] MEDS: *HR* Enoxaparin 120 MG/0.8 ML SYRINGE SQ SCH ×2 (05:12→16:53)
[2021-04-04] MEDS: Levothyroxine 25 MCG TABLET PO SCH (05:12)
[2021-04-04 09:02] LABS: Magnesium 0.7 mg/dL (1.6-2.6); Phosphorous 2.6 mg/dL (2.7-4.5)
[2021-04-04] MEDS: Chlorhexidine Rinse 15 ML MOUTHWASH MM SCH ×2 (10:01→20:01)
[2021-04-04] MEDS: Sennosides/Docusate Sodium TABLET PO SCH ×2 (10:01→20:01)
[2021-04-04] MEDS: Lactobacillus 1 EACH CAP.SPRINK PO SCH ×2 (10:01→20:01)
[2021-04-04] MEDS: Insulin LISPRO 300 UNITS/3 ML VIAL SUBQ SCH ×3 (10:02→16:53)
[2021-04-04] MEDS: Insulin DETEMIR 100 UNIT/ML X5UNITS SUBQ SCH (10:02)
[2021-04-04] MEDS ORDERED: *HR* Warfarin 3 MG TABLET PO ONE (18:00)
[2021-04-05 00:57] LABS: Hematocrit 28.4 % (35.3-44.9); Hemoglobin 8.8 g/dL (11.5-15.4); Mean Corpuscular Hemoglobin 29.1 pg (28.0-33.3); Platelet Count 360 K/mcL (140-400); Red Blood Count 3.02 M/mcL (3.82-4.97); Red Cell Distribution Width 18.6 % (11.5-14.5); White Blood Count 7.7 K/mcL (4.3-11.1)
[2021-04-05 01:05] LABS: INR 1.4; Prothrombin Time 16.1 Seconds (9.4-12.1)
[2021-04-05 01:15] LABS: BUN/Creatinine Ratio 10 (6-26); Blood Urea Nitrogen 9 mg/dL (8-23); Calcium 7.1 mg/dL (8.6-10.3); Carbon Dioxide 27 mEq/L (23-29); Chloride 105 mEq/L (98-107); Glucose 148 mg/dL (70-105); Osmolality,Calculated 291 (280-300); Potassium 3.3 mEq/L (3.5-5.1); Sodium 140 mEq/L (136-145); eGFR For African Americans > 60 (> 60); eGFR For Non-African Americans > 60 (> 60)
[2021-04-05] MEDS: *HR* Enoxaparin 120 MG/0.8 ML SYRINGE SQ SCH ×2 (05:47→18:22)
[2021-04-05] MEDS: Levothyroxine 25 MCG TABLET PO SCH (05:48)
[2021-04-05] MEDS: Sennosides/Docusate Sodium TABLET PO SCH ×2 (08:11→20:44)
[2021-04-05] MEDS: Chlorhexidine Rinse 15 ML MOUTHWASH MM SCH ×2 (08:11→20:43)
[2021-04-05] MEDS: Insulin DETEMIR 100 UNIT/ML X5UNITS SUBQ SCH (08:11)
[2021-04-05] MEDS: Lactobacillus 1 EACH CAP.SPRINK PO SCH ×2 (08:12→20:42)
[2021-04-05] MEDS: Insulin LISPRO 300 UNITS/3 ML VIAL SUBQ SCH ×3 (08:13→16:32)
[2021-04-05] MEDS ORDERED: 0.9 % Sodium Chloride 250 ML ONE (12:38)
[2021-04-05 12:42] LABS: Magnesium 0.6 mg/dL (1.6-2.6)
[2021-04-05] MEDS ORDERED: *HR* Warfarin 4 MG TABLET PO ONE (18:00)
[2021-04-06 03:09] LABS: Hematocrit 26.2 % (35.3-44.9); Hemoglobin 8.4 g/dL (11.5-15.4); Mean Corpuscular HGB Conc 32.1 g/dL (31.6-35.5); Mean Corpuscular Hemoglobin 30.2 pg (28.0-33.3); Mean Corpuscular Volume 94.2 fL (83.0-100.0); Mean Platelet Volume 10.5 fL (9.4-12.4); Platelet Count 306 K/mcL (140-400); Red Blood Count 2.78 M/mcL (3.82-4.97); Red Cell Distribution Width 18.7 % (11.5-14.5); White Blood Count 7.1 K/mcL (4.3-11.1)
[2021-04-06 03:20] LABS: BUN/Creatinine Ratio 11 (6-26); Blood Urea Nitrogen 8 mg/dL (8-23); Calcium 7.2 mg/dL (8.6-10.3); Carbon Dioxide 23 mEq/L (23-29); Chloride 105 mEq/L (98-107); Glucose 117 mg/dL (70-105); Magnesium 1.3 mg/dL (1.6-2.6); Osmolality,Calculated 281 (280-300); Phosphorous 2.1 mg/dL (2.7-4.5); Sodium 136 mEq/L (136-145); eGFR For African Americans > 60 (> 60); eGFR For Non-African Americans > 60 (> 60)
[2021-04-06 03:21] LABS: INR 1.4; Prothrombin Time 15.7 Seconds (9.4-12.1)
[2021-04-06] MEDS: Levothyroxine 25 MCG TABLET PO SCH (05:18)
[2021-04-06] MEDS: *HR* Enoxaparin 120 MG/0.8 ML SYRINGE SQ SCH ×2 (05:19→17:02)
[2021-04-06] MEDS: Insulin LISPRO 300 UNITS/3 ML VIAL SUBQ SCH ×3 (07:15→17:05)
[2021-04-06] MEDS: Chlorhexidine Rinse 15 ML MOUTHWASH MM SCH ×2 (08:43→21:00)
[2021-04-06] MEDS: Lactobacillus 1 EACH CAP.SPRINK PO SCH ×2 (08:44→21:00)
[2021-04-06] MEDS: Insulin DETEMIR 100 UNIT/ML X5UNITS SUBQ SCH (08:44)
[2021-04-06] MEDS: Sennosides/Docusate Sodium TABLET PO SCH ×2 (08:46→21:00)
[2021-04-06] MEDS: Acetaminophen 325 MG TABLET PO PRN (08:52)
[2021-04-06] MEDS ORDERED: 0.9 % Sodium Chloride 250 ML ONE (09:02)
[2021-04-06] MEDS ORDERED: *HR* Warfarin 4 MG TABLET PO ONE (18:00)
[2021-04-07 02:43] LABS: Hematocrit 27.2 % (35.3-44.9); Hemoglobin 8.4 g/dL (11.5-15.4); Mean Corpuscular HGB Conc 30.9 g/dL (31.6-35.5); Mean Corpuscular Hemoglobin 29.5 pg (28.0-33.3); Mean Corpuscular Volume 95.4 fL (83.0-100.0); Mean Platelet Volume 10.6 fL (9.4-12.4); Platelet Count 285 K/mcL (140-400); Red Blood Count 2.85 M/mcL (3.82-4.97); Red Cell Distribution Width 18.8 % (11.5-14.5); White Blood Count 7.4 K/mcL (4.3-11.1)
[2021-04-07 02:50] LABS: INR 1.5; Prothrombin Time 16.7 Seconds (9.4-12.1)
[2021-04-07 02:52] LABS: BUN/Creatinine Ratio 11 (6-26); Blood Urea Nitrogen 8 mg/dL (8-23); Calcium 7.4 mg/dL (8.6-10.3); Carbon Dioxide 25 mEq/L (23-29); Chloride 104 mEq/L (98-107); Glucose 126 mg/dL (70-105); Osmolality,Calculated 282 (280-300); Potassium 3.8 mEq/L (3.5-5.1); Sodium 136 mEq/L (136-145); eGFR For African Americans > 60 (> 60); eGFR For Non-African Americans > 60 (> 60)
[2021-04-07 02:54] LABS: Magnesium 1.6 mg/dL (1.6-2.6)
[2021-04-07] MEDS: *HR* Enoxaparin 120 MG/0.8 ML SYRINGE SQ SCH ×2 (05:34→16:43)
[2021-04-07] MEDS: Levothyroxine 25 MCG TABLET PO SCH (05:35)
[2021-04-07] MEDS: Insulin LISPRO 300 UNITS/3 ML VIAL SUBQ SCH ×3 (09:18→16:14)
[2021-04-07] MEDS: Sennosides/Docusate Sodium TABLET PO SCH ×2 (09:24→20:11)
[2021-04-07] MEDS: Insulin DETEMIR 100 UNIT/ML X5UNITS SUBQ SCH (09:24)
[2021-04-07] MEDS: Lactobacillus 1 EACH CAP.SPRINK PO SCH ×2 (09:24→20:11)
[2021-04-07] MEDS: Chlorhexidine Rinse 15 ML MOUTHWASH MM SCH ×2 (09:24→20:11)
[2021-04-07] MEDS ORDERED: *HR* Warfarin 4 MG TABLET PO ONE (18:00)
[2021-04-08 02:41] LABS: INR 1.7
[2021-04-08 02:43] LABS: Magnesium 1.3 mg/dL (1.6-2.6); Phosphorous 2.3 mg/dL (2.7-4.5)
[2021-04-08] MEDS: *HR* Enoxaparin 120 MG/0.8 ML SYRINGE SQ SCH ×2 (05:08→18:00)
[2021-04-08] MEDS: Levothyroxine 25 MCG TABLET PO SCH (05:09)
[2021-04-08] MEDS: Insulin LISPRO 300 UNITS/3 ML VIAL SUBQ SCH ×3 (07:22→16:38)
[2021-04-08] MEDS: Insulin DETEMIR 100 UNIT/ML X5UNITS SUBQ SCH (09:05)
[2021-04-08] MEDS: Lactobacillus 1 EACH CAP.SPRINK PO SCH ×2 (09:07→20:07)
[2021-04-08] MEDS: Chlorhexidine Rinse 15 ML MOUTHWASH MM SCH ×2 (09:07→20:05)
[2021-04-08] MEDS: Sennosides/Docusate Sodium TABLET PO SCH ×2 (09:07→20:13)
[2021-04-08] MEDS: Magnesium Oxide 400 MG TABLET PO SCH (09:07)
[2021-04-08] MEDS ORDERED: *HR* Warfarin 4 MG TABLET PO ONE (18:00)
[2021-04-09 02:54] LABS: INR 1.9; Prothrombin Time 20.9 Seconds (9.4-12.1)
[2021-04-09] MEDS: Levothyroxine 25 MCG TABLET PO SCH (05:43)
[2021-04-09] MEDS: *HR* Enoxaparin 120 MG/0.8 ML SYRINGE SQ SCH ×2 (05:43→17:22)
[2021-04-09] MEDS: Insulin LISPRO 300 UNITS/3 ML VIAL SUBQ SCH ×3 (07:41→17:21)
[2021-04-09] MEDS: Lactobacillus 1 EACH CAP.SPRINK PO SCH ×2 (09:51→21:09)
[2021-04-09] MEDS: Chlorhexidine Rinse 15 ML MOUTHWASH MM SCH ×2 (09:51→21:10)
[2021-04-09] MEDS: Insulin DETEMIR 100 UNIT/ML X5UNITS SUBQ SCH (09:52)
[2021-04-09] MEDS: Sennosides/Docusate Sodium TABLET PO SCH ×2 (09:52→21:09)
[2021-04-09] MEDS: Magnesium Oxide 400 MG TABLET PO SCH (09:54)
[2021-04-09] MEDS: Acetaminophen 325 MG TABLET PO PRN (16:06)
[2021-04-09] MEDS ORDERED: *HR* Warfarin 4 MG TABLET PO ONE (18:00)
[2021-04-10 01:24] LABS: INR 2.3
[2021-04-10 01:39] LABS: Magnesium 1.1 mg/dL (1.6-2.6); Phosphorous 2.7 mg/dL (2.7-4.5)
[2021-04-10] MEDS: Levothyroxine 25 MCG TABLET PO SCH (05:15)
[2021-04-10] MEDS: *HR* Enoxaparin 120 MG/0.8 ML SYRINGE SQ SCH (05:15)
[2021-04-10] MEDS: Insulin LISPRO 300 UNITS/3 ML VIAL SUBQ SCH ×3 (07:53→17:26)
[2021-04-10] MEDS: Chlorhexidine Rinse 15 ML MOUTHWASH MM SCH ×2 (08:10→21:26)
[2021-04-10] MEDS: Lactobacillus 1 EACH CAP.SPRINK PO SCH ×2 (08:11→21:26)
[2021-04-10] MEDS: Magnesium Oxide 400 MG TABLET PO SCH (08:11)
[2021-04-10] MEDS: Sennosides/Docusate Sodium TABLET PO SCH ×2 (08:11→21:27)
[2021-04-10] MEDS: Insulin DETEMIR 100 UNIT/ML X5UNITS SUBQ SCH (08:17)
[2021-04-10] MEDS: *HR* OxyCODONE/APAP 5/325 TABLET PO PRN (17:23)
[2021-04-10] MEDS ORDERED: *HR* Warfarin 3 MG TABLET PO ONE (18:00)
[2021-04-11] MEDS: Lactobacillus 1 EACH CAP.SPRINK PO SCH ×2 (08:23→20:54)
[2021-04-11] MEDS: *HR* OxyCODONE/APAP 5/325 TABLET PO PRN ×2 (08:23→17:03)
[2021-04-11] MEDS: Insulin DETEMIR 100 UNIT/ML X5UNITS SUBQ SCH (08:23)
[2021-04-11] MEDS: Levothyroxine 25 MCG TABLET PO SCH (08:23)
[2021-04-11] MEDS: Chlorhexidine Rinse 15 ML MOUTHWASH MM SCH ×2 (08:24→22:19)
[2021-04-11] MEDS: Insulin LISPRO 300 UNITS/3 ML VIAL SUBQ SCH ×3 (08:24→17:55)
[2021-04-11] MEDS: Magnesium Oxide 400 MG TABLET PO SCH (08:24)
[2021-04-11] MEDS: Sennosides/Docusate Sodium TABLET PO SCH ×2 (08:25→22:19)
[2021-04-11] MEDS ORDERED: *HR* Warfarin 2 MG TABLET PO ONE (18:00)
[2021-04-11 20:07] LABS: INR 2.1; Prothrombin Time 23.1 Seconds (9.4-12.1)
[2021-04-12 03:47] LABS: Prothrombin Time 22.7 Seconds (9.4-12.1)
[2021-04-12] MEDS: Levothyroxine 25 MCG TABLET PO SCH (07:16)
[2021-04-12] MEDS: Chlorhexidine Rinse 15 ML MOUTHWASH MM SCH (08:11)
[2021-04-12] MEDS: Magnesium Oxide 400 MG TABLET PO SCH (08:11)
[2021-04-12] MEDS: Lactobacillus 1 EACH CAP.SPRINK PO SCH (08:11)
[2021-04-12] MEDS: Insulin DETEMIR 100 UNIT/ML X5UNITS SUBQ SCH (08:12)
[2021-04-12] MEDS: Sennosides/Docusate Sodium TABLET PO SCH (08:16)
[2021-04-12] MEDS: Insulin LISPRO 300 UNITS/3 ML VIAL SUBQ SCH ×3 (08:16→17:25)
[2021-04-12 12:06] LABS: Adenovirus Not Detected (Not Detect); Bordetella Pertussis Not Detected (Not Detect); Chlamydophila pneumoniae Not Detected (Not Detect); Coronavirus 229E Not Detected (Not Detect); Coronavirus HKU1 Not Detected (Not Detect); Coronavirus NL63 Not Detected (Not Detect); Coronavirus OC43 Not Detected (Not Detect); Human Metapneumovirus Not Detected (Not Detect); Human Rhinovirus/Enterovirus Not Detected (Not Detect); Influenza A Subtype 2009 H1 Not Detected (Not Detect); Influenza B Not Detected (Not Detect); Mycoplasma pneumoniae Not Detected (Not Detect); Parainfluenza Virus 1 Not Detected (Not Detect); Parainfluenza Virus 2 Not Detected (Not Detect); Parainfluenza Virus 3 Not Detected (Not Detect); Parainfluenza Virus 4 Not Detected (Not Detect); Respiratory Syncytial Virus Not Detected (Not Detect); SARS-CoV-2 Not Detected (Not Detect)
[2021-04-12] MEDS: *HR* OxyCODONE/APAP 5/325 TABLET PO PRN (12:12)
[2021-04-12 16:52] VITALS: BP 126/80; PULSE 87; TEMP 97.2; O2SAT 95
[2021-04-12] MEDS: Acetaminophen 325 MG TABLET PO PRN (17:45)
[2021-04-12] MEDS ORDERED: *HR* Warfarin 4 MG TABLET PO ONE (18:00)
== END 2021-04-12 18:06 | DRG 871 ==
LOC: SUATTDRO 03-26 00:15 → INTOOBSV 03-26 00:15 → 3NENU 03-26 00:15 → SUATTDRO 03-27 13:36 → 3ANU 03-31 16:19
PROVIDERS: ADMIT Internal Medicine; ATTEND Internal Medicine